=== PATIENT | female | born 1990 | race Caucasian/White ===

== ENCOUNTER 2024-04-10 22:30 | Inpatient (IN) | payer MEDICAID, OTHER ==
[2024-04-10] MEDS ORDERED: hydrALAZINE 20 MG/ML VIAL SLOW IVP PRN (23:34)
[2024-04-11] MEDS ORDERED: Calcium Gluc 4.6 MEQ/10 ML (100 MG/ML) SLOW IVP PRN (00:21)
[2024-04-11] MEDS ORDERED: Lorazepam 2 MG/ML VIAL SLOW IVP PRN (00:21)
[2024-04-11] MEDS ORDERED: Promethazine HCl 25 MG/ML VIAL IM PRN ×2 (00:23→03:19)
[2024-04-11] MEDS ORDERED: Ondansetron PF 4 MG/2 ML Vial IVP PRN ×3 (00:23→03:19)
[2024-04-11 00:28] LABS: #Basophils 0.06 10x3/uL (0.0-0.2); #Eosinophils 0.13 10x3/uL (0.0-0.5); #Monocytes 1.06 10x3/uL (0.0-1.1); #Neutrophils 7.84 10x3/uL (1.5-8.4); %Basophils 0.4 % (0.0-2.0); %Monocytes 7.8 % (0.0-10.0); %Neutrophils 57.8 % (40.0-75.0); Hematocrit 35.2 % (34.9-44.5); Hemoglobin 12.3 g/dL (12.0-15.5); Mean Corpuscular HGB CONC 34.9 g/dL (32.0-36.0); Mean Corpuscular Hemoglobin 30.4 pg (27.0-33.0); Mean Corpuscular Volume 86.9 fL (81.6-98.3); Mean Platelet Volume 12.7 fL (7.4-10.4); Platelet Count 207 10x3/uL (150-450); RBC Distribution Width 13.2 % (11.5-14.5); Red Blood Cell (RBC) Count 4.05 10x6/uL (3.90-5.03); White Blood Cell (WBC) Count 13.6 10x3/uL (3.5-10.5)
[2024-04-11] MEDS ORDERED: Oxytocin 30 units/NS 500 ML 500 ML IV SCH (00:30)
[2024-04-11] MEDS ORDERED: Magnesium Sulfate 20 gm/500 ml 20 GM/500 ML BAG IVPB SCH (00:30)
[2024-04-11] MEDS ORDERED: Carboprost 250 MCG/ML AMP IM PRN (00:34)
[2024-04-11] MEDS ORDERED: Diphenoxylate HCl/Atropine Tablet PO PRN ×4 (00:34→15:30)
[2024-04-11] MEDS ORDERED: Tranexamic Acid 1,000 MG/10 ML VIAL IVP PRN (00:34)
[2024-04-11] MEDS ORDERED: Misoprostol 200 MCG TAB PR PRN ×2 (00:34→03:06)
[2024-04-11 00:41] LABS: ALT (SGPT) 15 U/L (8-55); AST (SGOT) 13 U/L (5-34); Alkaline Phosphatase 106 U/L (40-110); Anion Gap 15 mmol/L (10-20); BUN (Urea Nitrogen) 13 mg/dL (7.0-18.7); Bilirubin, Total 0.2 mg/dL (0.2-1.2); Calc. Creatinine Clearance 0 mL/min (70-130); Calcium 9.7 mg/dL (7.8-10.44); Carbon Dioxide 19 mmol/L (22-29); Chloride 111 mmol/L (98-107); Estimated GFR 111; Globulin 3.3 g/dL (2.4-3.5); Glucose 95 mg/dL (70-105); Potassium 4.4 mmol/L (3.5-5.1); Protein, Total 6.3 g/dL (6.0-8.3); Sodium 141 mmol/L (136-145)
[2024-04-11] MEDS ORDERED: CEFAZOLIN 2 GM in Sodium Chloride 0.9% 100 ML IVPB SCH (00:45)
[2024-04-11] MEDS ORDERED: Labetalol HCl 100 MG/20 ML VIAL SLOW IVP PRN ×2 (00:46)
[2024-04-11 01:24] LABS: HBsAg Index 0.15 S/CO (0-0.99); Hep B Surf Ag - L&D Non-Reactive S/CO (NonReactive)
[2024-04-11 01:26] LABS: Syphilis Antibody Nonreactive (Nonreactive); Syphilis Antibody Index 0.05 S/CO (<1.00 Non-Reactive)
[2024-04-11] MEDS ORDERED: Simethicone Chewable 80 MG TAB PO PRN (03:06)
[2024-04-11] MEDS ORDERED: Lanolin Ointment 7 GM TUBE TOP PRN (03:06)
[2024-04-11] MEDS ORDERED: Bisacodyl 10 MG SUPP PR PRN (03:06)
[2024-04-11] MEDS ORDERED: hydrALAZINE 20 MG/ML VIAL SLOW IVP PRN (03:06)
[2024-04-11] MEDS ORDERED: diphenhydrAMINE 50 MG/ML VIAL IVP PRN (03:19)
[2024-04-11] MEDS ORDERED: Naloxone HCl 0.4 mg/ml Vial IV PRN (03:19)
[2024-04-11] MEDS ORDERED: Ketorolac Tromethamine 30 MG (1 mL) VIAL IVP PRN (03:19)
[2024-04-11] MEDS ORDERED: Moisturizing Cream (Eucerin) 113 GM JAR TOP PRN (03:19)
[2024-04-11] MEDS ORDERED: Naloxone HCl 0.4 mg/ml Vial IVP PRN ×2 (03:19)
[2024-04-11] MEDS ORDERED: fentaNYL 50 mcg/mL 1 mL Vial SLOW IVP PRN (03:19)
[2024-04-11] MEDS ORDERED: Ketorolac Tromethamine 30 MG (1 mL) VIAL IVP SCH (03:30)
[2024-04-11 05:05] VITALS: BMI 48.2
[2024-04-11 06:40] LABS: Creatinine, Urine 150.87 mg/dL (47-110)
[2024-04-11] MEDS: hydrALAZINE 20 MG/ML VIAL ONE (08:09)
[2024-04-11] MEDS: Labetalol HCl 100 MG/20 ML VIAL ONE (08:09)
[2024-04-11] MEDS: Magnesium Sulfate 20 gm/500 ml 20 GM/500 ML BAG ONE (08:09)
[2024-04-11] MEDS: Morphine PF 10 MG/10 ML VIAL ONE (08:10)
[2024-04-11] MEDS: Midazolam HCl 2 mg/2 ml Vial ONE (08:10)
[2024-04-11] MEDS: ePHEDrine Sulfate 50 MG/10 ML VIAL ONE (08:10)
[2024-04-11] MEDS: Dexmedetomidine 200 MCG/2 ML VIAL ONE (08:10)
[2024-04-11] MEDS: PROPOFOL 0 ML ONE (08:10)
[2024-04-11] MEDS: PROPOFOL 120 ML ONE (08:10)
[2024-04-11] MEDS: diphenhydrAMINE 50 MG/ML VIAL IVP SCH (08:40)
[2024-04-11] MEDS: Boostrix 0.5 ML (Tdap) VIAL (>/=7 yrs of age) IM ONE (08:47)
[2024-04-11] MEDS: Acetaminophen 325 MG TAB PO SCH (08:53)
[2024-04-11] MEDS: Morphine 4 MG/ML VIAL SLOW IVP SCH (09:14)
[2024-04-11] MEDS: Prenatal Vitamin 1 TAB PO SCH (09:15)
[2024-04-11] MEDS: Docusate 100 MG CAP PO SCH (09:16)
[2024-04-11] MEDS: Furosemide 20 MG (2 mL) VIAL SLOW IVP SCH (11:19)
[2024-04-11] MEDS: HYDROcodone/Acetaminophen 5/325 mg Tablet PO PRN (14:13)
[2024-04-11] MEDS ORDERED: HYDROcodone/Acetaminophen 5/325 mg Tablet PO PRN (15:30)
[2024-04-11] MEDS: Labetalol HCl 100 MG/20 ML VIAL SLOW IVP SCH (15:35)
[2024-04-12] MEDS: Calcium Carbonate 500 MG ChewTAB PO PRN (00:14)
[2024-04-12] MEDS: Labetalol HCl 100 MG TAB PO SCH ×2 (04:42→09:19)
[2024-04-12 05:32] LABS: Hemoglobin 10.4 g/dL (12.0-15.5); Mean Corpuscular HGB CONC 34.7 g/dL (32.0-36.0); Mean Corpuscular Hemoglobin 30.7 pg (27.0-33.0); Mean Corpuscular Volume 88.5 fL (81.6-98.3); Mean Platelet Volume 12.1 fL (7.4-10.4); Platelet Count 163 10x3/uL (150-450); RBC Distribution Width 13.6 % (11.5-14.5); Red Blood Cell (RBC) Count 3.39 10x6/uL (3.90-5.03); White Blood Cell (WBC) Count 12.3 10x3/uL (3.5-10.5)
[2024-04-12] MEDS: Ibuprofen 800 MG TAB PO SCH (06:04)
[2024-04-12] MEDS: Furosemide 20 MG TAB PO SCH (18:32)
[2024-04-12] MEDS: Labetalol HCl 100 MG TAB PO ONE (22:35)
[2024-04-13] MEDS ORDERED: Labetalol HCl 100 MG TAB PO SCH (09:00)
[2024-04-13] MEDS: Labetalol HCl 100 MG TAB PO SCH (09:10)
[2024-04-13] MEDS: Enoxaparin 40 MG (0.4 mL) SYRINGE SC SCH (20:05)
[2024-04-14 12:03] VITALS: BP 134/78; TEMP 98.3
== END 2024-04-14 13:35 | disposition home or self-care (01) | DRG 788 ==
LOC: CSHLD/OP 22:30 → CSHLD 04-11 00:33 → CSHPED 04-11 20:00
PROVIDERS: ADMIT Family Medicine; ATTEND Family Medicine
PROC: 10D00Z1 Extraction of Products of Conception, Low, Open Approach (ICD-10-PCS; principal; 2024-04-11)
DX: O14.14 Severe pre-eclampsia complicating childbirth (principal); Z3A.36 36 weeks gestation of pregnancy; Z37.0 Single live birth; O32.1XX0 Maternal care for breech presentation, not applicable or unspecified; O99.214 Obesity complicating childbirth; O34.211 Maternal care for low transverse scar from previous cesarean delivery; O99.345 Other mental disorders complicating the puerperium; F41.9 Anxiety disorder, unspecified
CPT/HCPCS: 36415; 51702; 80053; 82570; 84156; 85025; 85027; 86780; 86850; 86900; 86901; 87340; 88307; 99285; J0360; J0780; J1200; J1650; J1940; J2250; J2272; J2274; J2704; J3475